=== PATIENT | male | born 1995 | race Caucasian/White ===

== ENCOUNTER 2017-05-16 11:12 | Inpatient (IN) | payer OTHER ==
[~2017-05-16] VITALS: Ht 182.9 cm; Wt 75.0 kg
[2017-05-16 12:50] VITALS: BP 137/66; PULSE 64; RESP 18; TEMP 97.7; O2SAT 99
[2017-05-16 16:06] VITALS: BP 131/69; PULSE 81; RESP 19; TEMP 98; O2SAT 99
[2017-05-16] MEDS ORDERED: ACETAMINOPHEN 325 MG TAB PO PRN (16:15)
[2017-05-16] MEDS ORDERED: LACTULOSE SYRUP 20 GM/30 ML CUP PO PRN (16:15)
[2017-05-16] MEDS ORDERED: SENNOSIDES 8.6 MG TAB PO PRN (16:15)
[2017-05-16] MEDS ORDERED: NALOXONE HCL 0.4 MG/ML AMP IV PUSH PRN (16:15)
[2017-05-16] MEDS ORDERED: SODIUM CHLORIDE 0.9% FLUSH 10 ML FLUSH IV FLUSH PRN (16:15)
[2017-05-16] MEDS ORDERED: MAGNESIUM HYDROXIDE SUSP 30 ML CUP PO PRN (16:15)
[2017-05-16] MEDS ORDERED: ONDANSETRON HCL 4 MG/2 ML VIAL IVP PRN (16:15)
[2017-05-16] MEDS: FLUTICASONE PROPIONATE 50 MCG/ACT 16 GM NASAL SPRAY NASAL SCH (16:15)
[2017-05-16] MEDS ORDERED: BISACODYL 10 MG SUPP RECTAL PRN (16:15)
--- NOTE | 2017-05-16 16:25 | PD.CONS ---
History of Present Illness Service Neurology Consult Requested By er Reason for Consult imbalance Primary Care Physician No Primary Care Physician History of Present Illness 21-year-old healthy male presents the ER for sudden onset of jerky eye movements and imbalance. yesterday evening had mild rt ear pain and oscillopsia when looking to the left. went to bed. felt the same this am and had imbalance.went to [facility] for further care. then tx'd to [facility] [place] [facility] no fever, no headache, no neck pain. no nasal/ear discharge. no recent flu like illness. no drug/med use. has been doing well until yesterday evening. cbc nml. vitals stable. ct brain, cta brain/carotids- nml. PFSH Past Medical History Medical History: Denies Significant Hx Diminished Hearing: No Tetanus Vaccination: Unknown Influenza Vaccination: No ?: Not Past Surgical History Surgical History: No Previous Surgery Social History Alcohol Use: Yes (occasional) Tobacco Use: No Substance Use: No Allergies-Medications (Allergen,Severity, Reaction): Coded Allergies: No Known Allergies (Unverified , 05/16/17) Reported Meds & Prescriptions Reported Meds & Active Scripts Active No Active Prescriptions or Reported Medications Review of Systems Except as stated in HPI: all other systems reviewed are Neg Review of Systems All other ROS: ROS reviewed as documented in chart Past Family Social History Allergies: Coded Allergies: No Known Allergies (Unverified , 05/16/17) Active Ordered Medications Current Medications Medications (Trade) Dose Ordered Sig/An Route Start Time Stop Time Status Last Admin (NS Flush) 2 ml UNSCH PRN IV FLUSH 05/16/17 16:15 UNV (NS Flush) 2 ml BID IV FLUSH 05/16/17 21:00 UNV (Tylenol) 650 mg Q4H PRN PO 05/16/17 16:15 UNV (Zofran Inj) 4 mg Q6H PRN IVP 05/16/17 16:15 UNV (Narcan Inj) 0.4 mg UNSCH PRN IV PUSH 05/16/17 16:15 UNV (Flores-Colace) 1 tab BID PO 05/16/17 21:00 UNV (Milk Of Magnesia Liq) 30 ml Q12H PRN PO 05/16/17 16:15 UNV (Senokot) 17.2 mg Q12H PRN PO 05/16/17 16:15 UNV (Dulcolax Supp) 10 mg DAILY PRN RECTAL 05/16/17 16:15 UNV (Lactulose Liq) 30 ml DAILY PRN PO 05/16/17 16:15 UNV (Flonase Aristeo Spr) 2 spray DAILY NASAL 05/16/17 16:15 UNV Exam I&O / VS Vital Signs Date Time Temp Pulse Resp B/P (MAP) Pulse Ox O2 Delivery O2 Flow Rate FiO2 05/16/17 16:06 98.0 81 19 131/69 (89) 99 05/16/17 12:50 97.7 64 18 137/66 (89) 99 General: Alert and Oriented, No acute distress Eye: EOMI Respiratory: Non-labored respirations Cardiology: Normal rate Musculoskeletal: ROM Neurologic: Alert, Oriented, Normal DTR's Psychiatric: Cooperative, Appropriate mood & affect, Normal judgement Exam Comments ox 3, fluent, no aphasia. left gaze nystagmus, + head thrust test to the right. no head/neck tenderness, vff, ou 3-2mm, motor 5/5. brisk le reflexes, no clonus , slight increased tone in le; no dystaxia Review/Management Diagnosis/Plan: (1) Acute focal neurological deficit ICD Codes: R29.818 - Other symptoms and signs involving the nervous system Status: Acute Plan: etiology: pontine/cerebellar lesion vs rt vestibulocochlear dz, labyrinthitis brisk le reflexes and slightly increased tone. r/o MS recs mri brain/cspine follow exam (2) Ataxia ICD Codes: R27.0 - Ataxia, unspecified Status: Acute Marlon Armando MD May 16, 2017 16:25
--- NOTE | 2017-05-16 16:40 | HHI.HP ---
HPI Service [facility] Primary Care Physician No Primary Care Physician Admission Diagnosis Diagnoses: Chief Complaint: Imbalance, jerky eye movements. Travel History International Travel<30 Days: No Contact w/Intl Traveler <30 Da: No Traveled to Known Affected Are: No History of Present Illness This is a 21-year-old healthy male who presented to the ER in [place] complaining of sudden onset of jerking movement and imbalance on ambulation. The patient states that this morning symptoms started suddenly. The patient states that he cannot control his eye movements who are moving towards the right. He has to focus and able to be able to stop his eyes moving. Patient denies any dizziness, headache, blurry vision, double vision, nausea, vomiting. The patient also denies any fevers, chills, night sweats. He complains of right ear pain and pain around his wisdom teeth on the right side. The patient has also imbalance including case imbalance and also has inability to stand with his eyes closed. The patient denies also any head trauma. He states that symptoms have worsened when he moves his head, there are no relieving factors. Denies any visual disturbance, tinnitus or hearing loss. Review of Systems As per HPI, other systems reviewed by me and negative. Past Family Social History Past Medical History Denies Past Surgical History Denies Reported Medications No Active Prescriptions or Reported Medications Allergies: Coded Allergies: No Known Allergies (Unverified , 05/16/17) Active Ordered Medications Current Medications Medications (Trade) Dose Ordered Sig/An Route Start Time Stop Time Status Last Admin (NS Flush) 2 ml UNSCH PRN IV FLUSH 05/16/17 16:15 UNV (NS Flush) 2 ml BID IV FLUSH 05/16/17 21:00 UNV (Tylenol) 650 mg Q4H PRN PO 05/16/17 16:15 UNV (Zofran Inj) 4 mg Q6H PRN IVP 05/16/17 16:15 UNV (Narcan Inj) 0.4 mg UNSCH PRN IV PUSH 05/16/17 16:15 UNV (Flores-Colace) 1 tab BID PO 05/16/17 21:00 UNV (Milk Of Magnesia Liq) 30 ml Q12H PRN PO 05/16/17 16:15 UNV (Senokot) 17.2 mg Q12H PRN PO 05/16/17 16:15 UNV (Dulcolax Supp) 10 mg DAILY PRN RECTAL 05/16/17 16:15 UNV (Lactulose Liq) 30 ml DAILY PRN PO 05/16/17 16:15 UNV (Flonase Aristeo Spr) 2 spray DAILY NASAL 05/16/17 16:15 UNV Family History Denies family history of cancer, diabetes or heart disease. Social History The patient states he quit smoking approximately 2 weeks ago and now he smokes an electronic cigarette. Occasional alcohol. Denies illicit drug use. The patient is single and has no children. Physical Exam Vital Signs Vital Signs Date Time Temp Pulse Resp B/P (MAP) Pulse Ox O2 Delivery O2 Flow Rate FiO2 05/16/17 16:06 98.0 81 19 131/69 (89) 99 05/16/17 12:50 97.7 64 18 137/66 (89) 99 Physical Exam GENERAL: This is a well-nourished, well-developed patient, in no apparent distress. SKIN: No rashes, ecchymoses or lesions. Cool and dry. HEAD: Atraumatic. Normocephalic. No temporal or scalp tenderness. EYES: Pupils equal round and reactive. Extraocular motions intact. No scleral icterus. No injection or drainage. Horizontal nystagmus bilaterally. ENT: Nose without bleeding, purulent drainage or septal hematoma. Throat without erythema, tonsillar hypertrophy or exudate. Uvula midline. Airway patent. There is fluid in the middle ear on bilateral ears, no redness or erythema observed on otoscopic exam. NECK: Trachea midline. No JVD or lymphadenopathy. Supple, nontender, no meningeal signs. CARDIOVASCULAR: Regular rate and rhythm without murmurs, gallops, or rubs. RESPIRATORY: Clear to auscultation. Breath sounds equal bilaterally. No wheezes , rales, or rhonchi. GASTROINTESTINAL: Abdomen soft, non-tender, nondistended. No hepato-splenomegaly , or palpable masses. No guarding. MUSCULOSKELETAL: Extremities without clubbing, cyanosis, or edema. No joint tenderness, effusion, or edema noted. No calf tenderness. Negative Homans sign bilaterally. NEUROLOGICAL: Awake and alert. Cranial nerves II through XII intact. Motor and sensory grossly within normal limits. Five out of 5 muscle strength in all muscle groups. Normal speech. Patient has ataxia on exam and Romberg exam positive. Imaging Head CT reviewed by me did not show an acute disease. Head CTA negative. Neck CTA negative. Caprini VTE Risk Assessment Caprini VTE Risk Assessment: No/Low Risk (score <= 1) Caprini Risk Assessment Model Point Value = 1 Point Value = 2 Point Value = 3 Point Value = 5 Age 41-60 Minor surgery BMI > 25 kg/m2 Swollen legs Varicose veins or History of unexplained or recurrent spontaneous Oral contraceptives or hormone replacement Sepsis (< 1 month) Serious lung disease, including pneumonia (< 1 month) Abnormal pulmonary function Acute myocardial infarction Congestive heart failure (< 1 month) History of inflammatory bowel disease Medical patient at bed rest Age 61-74 Arthroscopic surgery Major open surgery (> 45 min) Laparoscopic surgery (> 45 min) Malignancy Confined to bed (> 72 hours) Immobilizing plaster cast Central venous access Age >= 75 History of VTE Family history of VTE Factor V Leiden Prothrombin [id number] Lupus anticoagulant Anticardiolipin antibodies Elevated serum homocysteine Heparin-induced thrombocytopenia Other congenital or acquired thrombophilia Stroke (< 1 month) Elective arthroplasty Hip, pelvis, or leg fracture Acute spinal cord injury (< 1 month) Prophylaxis Regimen Total Risk Factor Score Risk Level Prophylaxis Regimen 0-1 Low Early ambulation 2 Moderate Order ONE of the following: *Sequential Compression Device (SCD) *Heparin 5000 units SQ BID 3-4 Higher Order ONE of the following medications: *Heparin 5000 units SQ TID *Enoxaparin/Lovenox 40 mg SQ daily (WT < 150 kg, CrCl > 30 mL/min) *Enoxaparin/Lovenox 30 mg SQ daily (WT < 150 kg, CrCl > 10-29 mL/min) *Enoxaparin/Lovenox 30 mg SQ BID (WT < 150 kg, CrCl > 30 mL/min) AND/OR *Sequential Compression Device (SCD) 5 or more Highest Order ONE of the following medications: *Heparin 5000 units SQ TID (Preferred with Epidurals) *Enoxaparin/Lovenox 40 mg SQ daily (WT < 150 kg, CrCl > 30 mL/min) *Enoxaparin/Lovenox 30 mg SQ daily (WT < 150 kg, CrCl > 10-29 mL/min) *Enoxaparin/Lovenox 30 mg SQ BID (WT < 150 kg, CrCl > 30 mL/min) AND *Sequential Compression Device (SCD) Assessment and Plan Problem List: (1) Nystagmus ICD Code: H55.00 - Unspecified nystagmus (2) Ataxia ICD Code: R27.0 - Ataxia, unspecified Assessment and Plan This is a previously healthy 21-year-old male with a significant past medical history who presents complaining of sudden onset of nystagmus and what seems to be cerebellar ataxia. Patient also has right ear pain. Differential diagnosis includes stroke, labyrinthitis, vasculitis, autoimmune disorder, hypothyroidism. Check MRI of the brain, consult neurology. Check B12, RPR, HIV screen, TSH, urine drug screen, DAISY screen, copper levels, vitamin B12 serum levels. We will start fluticasone nasal spray. Rest of the management depending on MRI results and blood work. SCDs for DVT prophylaxis. Consult PT eval and treat. Code Status Full code Discussed Condition With Patient patient's mother was at bedside, ED physician. Physician Certification 2 Midnight Certification Type: Admission for Inpatient Services Order for Inpatient Services The services are ordered in accordance with Medicare regulations or non- Medicare payer requirements, as applicable. In the case of services not specified as inpatient-only, they are appropriately provided as inpatient services in accordance with the 2-midnight benchmark. Estimated LOS (days): 2 days is the estimated time the patient will need to remain in the hospital, assuming treatment plan goals are met and no additional complications. Post-Hospital Plan: Not yet determined Alec Ochoa MD May 16, 2017 16:40
--- NOTE | 2017-05-16 17:21 | RADRPT ---
EXAM DATE/TIME: 05/16/2017 16:25 [facility] COMPARISON: No previous studies available for comparison. INDICATIONS : Short of breath. MEDICAL HISTORY : None. SURGICAL HISTORY : None. ENCOUNTER: Initial ACUITY: 1 day PAIN SCORE: 0/10 LOCATION: Bilateral chest FINDINGS: A single view of the chest demonstrates the lungs to be symmetrically aerated without evidence of mas s, infiltrate or effusion. The cardiomediastinal contours are unremarkable. Osseous structures are intact. CONCLUSION: 1. No acute cardiopulmonary disease. Mike Pacheco MD on May 16, 2017 at 17:18 Board Certified Radiologist. This report was verified electronically.
[2017-05-16] MEDS ORDERED: GADODIAMIDE PF 287 MG/ML 5 ML VIAL (for RAD MRI) IVCONTRAST ONE (18:52)
--- NOTE | 2017-05-16 18:58 | RADRPT ---
EXAM DATE/TIME: 05/16/2017 18:03 [facility] COMPARISON: No previous studies available for comparison. INDICATIONS : Ataxia. CONTRAST: 15 cc Omniscan (gadodiamide) IV MEDICAL HISTORY : None. SURGICAL HISTORY : None. ENCOUNTER: Subsequent ACUITY: 1 day PAIN SCORE: 0/10 LOCATION: neck. TECHNIQUE: Multiplanar, multisequence MRI examination of the cervical spine was performed. FINDINGS: VERTEBRAE: Normal vertebral body height. Homogeneous marrow signal. ALIGNMENT: No evidence of subluxation. CORD: Normal configuration and signal. POST FOSSA: The cerebellar tonsils are normal in position. POST-CONTRAST: No abnormal areas of enhancement are seen. C2-C3: The thecal sac has a normal configuration. There is no evidence of disc herniation or spinal canal stenosis. The neural foramina are patent bilaterally. C3-C4: The thecal sac has a normal configuration. There is no evidence of disc herniation or spinal canal s tenosis. The neural foramina are patent bilaterally. C4-C5: The thecal sac has a normal configuration. There is no evidence of disc herniation or spinal canal s tenosis. The neural foramina are patent bilaterally. C5-C6: The thecal sac has a normal configuration. There is no evidence of disc herniation or spinal canal s tenosis. The neural foramina are patent bilaterally. C6-C7: The thecal sac has a normal configuration. There is no evidence of disc herniation or spinal canal s tenosis. The neural foramina are patent bilaterally. C7-T1: The thecal sac has a normal configuration. There is no evidence of disc herniation or spinal canal s tenosis. The neural foramina are patent bilaterally. CONCLUSION: Unremarkable exam. The cervical cord is within normal limits. Donald Ann MD on May 16, 2017 at 18:51 Board Certified Radiologist. This report was verified electronically.
--- NOTE | 2017-05-16 19:41 | RADRPT ---
EXAM DATE/TIME: 05/16/2017 18:03 [facility] COMPARISON: CT BRAIN W/O CONTRAST, May 16, 2017, 8:07. INDICATIONS : Nystagmus and ataxia. CONTRAST: 15 cc Omniscan (gadodiamide) IV MEDICAL HISTORY : None. SURGICAL HISTORY : None. ENCOUNTER: Subsequent ACUITY: 1 day PAIN SCORE: 0/10 LOCATION: head. TECHNIQUE: Multiplanar, multisequence MRI of the brain was performed both prior to and following the administrat ion of paramagnetic contrast. FINDINGS: CEREBRUM: The ventricles are normal for age. No evidence of midline shift, mass lesion, hemorrhage or acute in farction. No extraaxial fluid collections are seen. The pituitary gland and suprasellar cistern are normal in configuration. WHITE MATTER: No significant signal abnormalities are seen in the white matter. POSTERIOR FOSSA: The cerebellum and brainstem are intact. The 4th ventricle is midline. The cerebellopontine angle is unremarkable. The cerebellar tonsils are normal in position. DIFFUSION IMAGING: No focal areas of restricted diffusion are seen. No evidence of acute infarction. EXTRACRANIAL: The visualized portions of the orbits and paranasal sinuses are unremarkable. POST-CONTRAST: No abnormal areas of parenchymal or dural enhancement. No evidence of blood-brain barrier breakdown. CONCLUSION: Unremarkable exam. Donald Ann MD on May 16, 2017 at 19:37 Board Certified Radiologist. This report was verified electronically.
[2017-05-16 20:22] VITALS: BP 128/59; PULSE 75; RESP 19; TEMP 98.5; O2SAT 99
[2017-05-16] MEDS: DOCUSATE SODIUM 50 MG/SENNA 8.6 MG TAB PO SCH (20:47)
[2017-05-16] MEDS: SODIUM CHLORIDE 0.9% FLUSH 10 ML FLUSH IV FLUSH SCH (20:47)
[2017-05-16 22:06] LABS: C-REACTIVE PROTEIN LESS THAN 0.29 MG/DL (0.00-0.30)
[2017-05-17 00:45] VITALS: BP 130/62; PULSE 63; RESP 20; TEMP 98.1; O2SAT 99
[2017-05-17 05:06] VITALS: BP 127/61; PULSE 69; RESP 20; TEMP 97.9; O2SAT 98
--- NOTE | 2017-05-17 07:34 | HHI.PR ---
Review/Management Diagnosis/Plan: (1) Acute focal neurological deficit ICD Codes: R29.818 - Other symptoms and signs involving the nervous system Status: Acute Plan: etiology: peripheral bpv probable. other possibilities: rt vestibulocochlear dz, labyrinthitis + gary-hallpike to left, marycarmen then performed esr/crp normal recs mri brain/cspine- normal meclizine prn consider medrol dose pack outpatient vestibular therapy. told him to sleep upright x 3 days ent eval outpatient f/u with his pcp can f/u with us in 1-2 weeks ok to d/c today from neuro (2) Ataxia ICD Codes: R27.0 - Ataxia, unspecified Status: Acute Subjective Subjective Comments No acute events reported No headache No chest pain No dyspnea Active Medications Current Medications Medications (Trade) Dose Ordered Sig/An Route Start Time Stop Time Status Last Admin (NS Flush) 2 ml UNSCH PRN IV FLUSH 05/16/17 16:15 (NS Flush) 2 ml BID IV FLUSH 05/16/17 21:00 05/16/17 20:47 (Tylenol) 650 mg Q4H PRN PO 05/16/17 16:15 (Zofran Inj) 4 mg Q6H PRN IVP 05/16/17 16:15 (Narcan Inj) 0.4 mg UNSCH PRN IV PUSH 05/16/17 16:15 (Flores-Colace) 1 tab BID PO 05/16/17 21:00 (Milk Of Magnesia Liq) 30 ml Q12H PRN PO 05/16/17 16:15 (Senokot) 17.2 mg Q12H PRN PO 05/16/17 16:15 (Dulcolax Supp) 10 mg DAILY PRN RECTAL 05/16/17 16:15 (Lactulose Liq) 30 ml DAILY PRN PO 05/16/17 16:15 (Flonase Aristeo Spr) 2 spray DAILY NASAL 05/16/17 16:15 Allergies Allergies Coded Allergies No Known Allergies (Unverified05/16/17) Review of Systems All other ROS: ROS reviewed as documented in chart Exam I&O / VS Vital Signs Date Time Temp Pulse Resp B/P (MAP) Pulse Ox O2 Delivery O2 Flow Rate FiO2 05/17/17 05:06 97.9 69 20 127/61 (83) 98 4/11/18 00:45 98.1 63 20 130/62 (84) 99 05/16/17 20:22 98.5 75 19 128/59 (82) 99 05/16/17 16:06 98.0 81 19 131/69 (89) 99 05/16/17 12:50 97.7 64 18 137/66 (89) 99 General: Alert and Oriented, No acute distress Eye: EOMI Respiratory: Non-labored respirations Cardiology: Normal rate Musculoskeletal: ROM Neurologic: Alert, Oriented, Normal DTR's Psychiatric: Cooperative, Appropriate mood & affect, Normal judgement Exam Comments ox 3, fluent, no aphasia. left gaze nystagmus-less, + gary-hallpike to left, marycarmen then performed, vff, ou 3-2mm, motor 5/5. brisk le reflexes, no clonus, no dystaxia Objective Micro and Labs Laboratory Tests Test 05/16/17 18:55 05/16/17 20:26 Urine Opiates Screen NEG Urine Barbiturates Screen NEG Urine Amphetamines Screen NEG Urine Benzodiazepines Screen NEG Urine Cocaine Screen NEG Urine Cannabinoids Screen NEG Erythrocyte Sedimentation Rate 1 C-Reactive Protein LESS THAN 0.29 Vitamin B12 Level 439 Thyroid Stimulating Hormone 3rd Gen 1.370 HIV (1&2) Ab and P24 Ag, 4th Gener NONREACTIVE Marlon Armando MD May 17, 2017 07:34
[2017-05-17 08:00] VITALS: BP 117/67; PULSE 66; RESP 18; TEMP 98.1; O2SAT 99
[2017-05-17] MEDS ORDERED: MECLIZINE HCL 25 MG TAB PO PRN (08:15)
[2017-05-17] MEDS: DOCUSATE SODIUM 50 MG/SENNA 8.6 MG TAB PO SCH (09:00)
[2017-05-17] MEDS: FLUTICASONE PROPIONATE 50 MCG/ACT 16 GM NASAL SPRAY NASAL SCH (09:00)
[2017-05-17] MEDS: SODIUM CHLORIDE 0.9% FLUSH 10 ML FLUSH IV FLUSH SCH (09:00)
[2017-05-17 09:09] LABS: AUTOMATED NEUTROPHIL # 4.3 TH/MM3 (1.8-7.7); BASOPHIL % 0.6 % (0.0-2.0); EOSINOPHIL # 0.2 TH/MM3 (0-0.4); EOSINOPHIL % 3.1 % (0.0-4.0); HEMATOCRIT 47.3 % (39.0-51.0); HEMOGLOBIN 15.9 GM/DL (13.0-17.0); LYMPH % 34.2 % (9.0-44.0); LYMPHOCYTE # 2.7 TH/MM3 (1.0-4.8); MEAN CELL VOLUME 88.7 FL (80.0-100.0); MEAN CORPUSCULAR HEMOGLOBIN 29.9 PG (27.0-34.0); MEAN CORPUSCULAR HGB CONC 33.7 % (32.0-36.0); MEAN PLATELET VOLUME 7.8 FL (7.0-11.0); MONO % 7.3 % (0.0-8.0); MONOCYTE # 0.6 TH/MM3 (0-0.9); NEUT % 54.8 % (16.0-70.0); PLATELET COUNT 223 TH/MM3 (150-450); RED BLOOD COUNT 5.33 MIL/MM3 (4.50-5.90); RED CELL DISTRIBUTION WIDTH 12.6 % (11.6-17.2); WHITE BLOOD COUNT 7.9 TH/MM3 (4.0-11.0)
[2017-05-17 09:25] LABS: ALBUMIN 4.1 GM/DL (3.4-5.0); AST (GOT) 12 U/L (15-37); BICARBONATE 29.5 MEQ/L (21.0-32.0); BLOOD UREA NITROGEN 13 MG/DL (7-18); CALCIUM 9.3 MG/DL (8.5-10.1); CHLORIDE 105 MEQ/L (98-107); CREATININE 1.27 MG/DL (0.60-1.30); GLOMERULAR FILTRATION RATE 71 ML/MIN (>89); GLUCOSE,RANDOM 92 MG/DL (74-106); SODIUM (NA) 140 MEQ/L (136-145)
[2017-05-17 09:26] LABS: ALT (GPT) 14 U/L (12-78)
[2017-05-17 09:28] LABS: ALKALINE PHOSPHATASE 58 U/L (45-117); TOTAL BILIRUBIN ADULT 1.1 MG/DL (0.2-1.0); TOTAL PROTEIN 7.8 GM/DL (6.4-8.2)
[2017-05-17 10:01] LABS: RPR SCREEN FOR REFLEX NON-REACTIVE (NON-REACTVE)
--- NOTE | 2017-05-17 11:11 | HHI.PR ---
Subjective Remarks Follow up peripheral BPV probable 05/17/17-patient seen and examined, states he has some improvement of nystagmus. Although he needs assistance to walk, but states he is feeling better. Family by the bedside and MOM states she has a PMHs of MS and CVA Objective Vitals Vital Signs Date Time Temp Pulse Resp B/P (MAP) Pulse Ox O2 Delivery O2 Flow Rate FiO2 05/17/17 08:00 98.1 66 18 117/67 (84) 99 05/17/17 05:06 97.9 69 20 127/61 (83) 98 05/17/17 00:45 98.1 63 20 130/62 (84) 99 05/16/17 20:22 98.5 75 19 128/59 (82) 99 05/16/17 16:06 98.0 81 19 131/69 (89) 99 05/16/17 12:50 97.7 64 18 137/66 (89) 99 Result Diagram: 05/17/17 0825 05/17/17 0825 Imaging Last Impressions Chest X-Ray 05/16/17 1612 Signed Impressions: Service Date/Time: Tuesday, May 16, 2017 16:25 - CONCLUSION: 1. No acute cardiopulmonary disease. Mike Pacheco MD Cervical Spine MRI 05/16/17 0000 Signed Impressions: Service Date/Time: Tuesday, May 16, 2017 18:03 - CONCLUSION: Unremarkable exam. The cervical cord is within normal limits. Donald Ann MD Brain MRI 05/16/17 0000 Signed Impressions: Service Date/Time: Tuesday, May 16, 2017 18:03 - CONCLUSION: Unremarkable exam. Donald Ann MD Objective Remarks GENERAL: NAD SKIN: Warm and dry. HEAD: Normocephalic. EYES: No scleral icterus. No injection or drainage. NECK: Supple, trachea midline. No JVD or lymphadenopathy. CARDIOVASCULAR: Regular rate and rhythm without murmurs, gallops, or rubs. RESPIRATORY: Breath sounds equal bilaterally. No accessory muscle use. GASTROINTESTINAL: Abdomen soft, non-tender, nondistended. MUSCULOSKELETAL: No cyanosis, or edema. BACK: Nontender without obvious deformity. No CVA tenderness. Procedures none A/P Problem List: (1) Nystagmus ICD Code: H55.00 - Unspecified nystagmus (2) Ataxia ICD Code: R27.0 - Ataxia, unspecified Status: Acute (3) Benign paroxysmal positional vertigo ICD Code: H81.10 - Benign paroxysmal vertigo, unspecified ear Assessment and Plan 21 yrs old man with Peripheral BPV probable-Improving + gary-hallpike to left, marycarmen then performed Improving on meclizine prn May consider medrol dose pack Will need outpatient vestibular therapy Discharge Planning Discharge patient to home Condition on discharge: Improved Regular Diet as tolerated Ad Francheska activity Rx written:Meclizine Follow-up with primary care physician in 1 week Neurology in 1-2 weeks Michael Hunter MD May 17, 2017 11:11
[2017-05-17] MEDS ORDERED: FLUT50SP NASAL (11:17)
[2017-05-17] MEDS ORDERED: MECL1TAB42 PO (11:17)
[2017-05-17 12:00] VITALS: BP 132/62; PULSE 75; RESP 22; TEMP 98.3; O2SAT 99
== END 2017-05-17 14:51 | disposition home or self-care (01) | DRG 123 ==
LOC: NEPB 11:12 → NEDA 11:13 → UNDOADMIN 11:13 → NEDA 12:15 → N05B 16:01
PROVIDERS: ADMIT Hospitalist; ATTEND Hospitalist
DX: H55.00 Unspecified nystagmus (principal); F17.290 Nicotine dependence, other tobacco product, uncomplicated; R27.0 Ataxia, unspecified; H83.09 Labyrinthitis, unspecified ear; H81.10 Benign paroxysmal vertigo, unspecified ear; R29.818 Other symptoms and signs involving the nervous system
CPT/HCPCS: 70450; 70496; 70498; 70553; 71045; 72156; 80053; 80307; 81001; 82525; 82607; 84443; 84484; 85025; 85610; 85652; 85730; 86038; 86140; 86592; 86703; 99285; A9579; Q9967